=== PATIENT | male | born 1980 | race Hispanic/Latino ===

== ENCOUNTER 2017-02-02 01:59 | Inpatient (IN) | payer BC, OTHER ==
--- NOTE | 2017-02-02 02:49 | Emergency Department Report ---
ED Chest Pain HPI - General Chief Complaint: Chest Pain Stated Complaint: CHEST PAIN Time Seen by Provider: 02/02/17 02:42 Source: patient, EMS Mode of arrival: Stretcher Limitations: No Limitations - History of Present Illness Initial Comments: Patient is a 36-year-old male with past medical history of CAD/CVA and high blood pressure and hyperlipidemia presents to the ER via EMS for chest pain, diaphoresis, shortness of breath. EMS gave patient nitroglycerin and 325 aspirin. Patient describes chest pain as a pressure in the center of his chest. Pain does not radiate anywhere. -: Sudden, This morning Onset: during rest Pain Location: substernal, left chest Pain Radiation: none Severity: moderate Severity scale (0 -10): 3 Quality: tightness, heaviness, pressure Consistency: constant Improves With: nitroglycerin, rest Worsens With: exertion, inspiration re: nausea, diaphoresis, dyspnea Treatments Prior to Arrival: aspirin, nitroglycerin, oxygen Aspirin use within the Past 7 Days: (0) No - Related Data On Oral Contraceptives: No Allergies Allergy/AdvReac Type Severity Reaction Status Date / Time No Known Allergies Allergy Verified 10/12/15 08:15 Heart Score - HEART Score History: Slightly suspicious EKG: Normal Age: < 45 Risk factors: > 3 risk factors or hx of atherosclerotic disease Troponin: < normal limit HEART Score: 2 ED Review of Systems ROS: Stated complaint: CHEST PAIN Other details as noted in HPI Comment: All other systems reviewed and negative Constitutional: see HPI, diaphoresis Eyes: as per HPI ENT: as per HPI Respiratory: no symptoms reported Cardiovascular: as per HPI, chest pain Endocrine: no symptoms reported Gastrointestinal: as per HPI Genitourinary: as per HPI Musculoskeletal: as per HPI Skin: as per HPI Neurological: as per HPI Psychiatric: as per HPI Hematological/Lymphatic: as per HPI ED Past Medical Hx - Past Medical History Previous Medical History?: Yes Hx Hypertension: Yes Hx CVA: Yes Hx Heart Attack/AMI: Yes Hx Congestive Heart Failure: No Hx Diabetes: No Hx of Cancer: No Hx Asthma: No Hx COPD: No - Surgical History Past Surgical History?: No - Family History Family history: CAD/NV, hypertension - Social History Smoking Status: Current Every Day Smoker Substance Use Type: None ED Physical Exam - General Limitations: No Limitations General appearance: alert, in no apparent distress - Head Head exam: Present: atraumatic, normocephalic - Eye Eye exam: Present: normal appearance - ENT ENT exam: Present: mucous membranes moist - Neck Neck exam: Present: normal inspection - Respiratory Respiratory exam: Present: normal lung sounds bilaterally. Absent: respiratory distress - Cardiovascular Cardiovascular Exam: Present: regular rate, normal rhythm. Absent: systolic murmur, diastolic murmur, rubs, gallop - GI/Abdominal GI/Abdominal exam: Present: soft, normal bowel sounds - Rectal Rectal exam: Present: deferred - Extremities Exam Extremities exam: Present: normal inspection - Back Exam Back exam: Present: normal inspection - Neurological Exam Neurological exam: Present: alert, oriented X3 - Psychiatric Psychiatric exam: Present: normal affect, normal mood - Skin Skin exam: Present: warm, dry, intact, normal color. Absent: rash ED Course Vital Signs 02/02/17 02/02/17 02/02/17 02:16 02:30 03:00 Temperature 98.3 F Pulse Rate 91 H 89 77 Respiratory 21 11 L Rate Blood Pressure 125/93 111/85 122/87 O2 Sat by Pulse 97 96 98 Oximetry 02/02/17 03:16 Temperature Pulse Rate Respiratory 17 Rate Blood Pressure O2 Sat by Pulse 97 Oximetry ANDRE score - Andre Score Age > 65: (0) No Aspirin use within the Past 7 Days: (0) No 3 or more CAD Risk Factors: (1) Yes 2 or more Angina events in past 24 hrs: (0) No Known CAD with more than 50% Stenosis: (0) No Elevated Cardiac Markers: (0) No ST Deviation Greater than 0.5mm: (0) No ANDRE Score: 1 ED Medical Decision Making - Lab Data Result diagrams: 02/02/17 02:42 02/02/17 02:42 - EKG Data -: EKG Interpreted by Al EKG shows normal: sinus rhythm Rate: normal - EKG Data Interpretation: no acute changes, normal EKG - Radiology Data Radiology results: image reviewed No acute disease on chest x-ray. - Medical Decision Making Will consult hospitalist for admission. - Differential Diagnosis cp. acs. angina Critical care attestation.: If time is entered above; I have spent that time in minutes in the direct care of this critically ill patient, excluding procedure time. ED Disposition Clinical Impression: Chest pain, Diaphoresis, Hyperlipidemia, Hypertension Disposition: OP ADMIT IP TO THIS HOSP Is pt being admited?: Yes Does the pt Need Aspirin: No Condition: Serious Time of Disposition: 03:56
[2017-02-02 03:05] LABS: Basophils % (Auto) 0.9 % (0.0-1.8); Eosinophils % (Auto) 1.8 % (0.0-4.3); Hematocrit 45.3 % (35.5-45.6); Hemoglobin 15.8 gm/dl (11.8-15.2); Mean Corpuscular HGB Conc 35 % (32-34); Mean Corpuscular Hemoglobin 32 pg (28-32); Mean Corpuscular Volume 91 fl (84-94); Platelet Count 234 K/mm3 (140-440); Red Blood Count 4.97 M/mm3 (3.65-5.03); Red Cell Distribution Width 12.9 % (13.2-15.2); White Blood Count 14.3 K/mm3 (4.5-11.0)
--- NOTE | 2017-02-02 03:05 | XRay Report ---
FINAL REPORT EXAM: XR CHEST 1V AP HISTORY: cp TECHNIQUE: A portable upright view of the chest was submitted. FINDINGS: The heart size and mediastinum appear normal. The lungs are clear. Pleural fluid is not seen. The bones and soft tissues reveal arthritic changes in the AC joints bilaterally. IMPRESSION: No active chest disease.
[2017-02-02 03:15] LABS: Anion Gap 18 mmol/L; BUN/Creatinine Ratio 16; Blood Urea Nitrogen 11 mg/dL (9-20); Calcium 8.8 mg/dL (8.4-10.2); Carbon Dioxide 26 mmol/L (22-30); Chloride 103.8 mmol/L (98-107); Glucose 106 mg/dL (75-100); Potassium 3.9 mmol/L (3.6-5.0); Sodium 144 mmol/L (137-145)
[2017-02-02] MEDS ORDERED: MORPHINE IV ONE (03:15)
[2017-02-02] MEDS ORDERED: MORPHINE IV PRN ×3 (06:04→08:56)
--- NOTE | 2017-02-02 08:43 | History and Physical Report ---
<BAHMAN HAM - Last Filed: 02/02/17 13:44> History of Present Illness Date of examination: 02/02/17 Date of admission: 02/02/17 06:03 Chief complaint: chest pain History of present illness: Patient is a 64-year-old male with past medical history of hypertension and stroke with left side weakness, who presents to emergency department for complaining of left side chest pain. He states that the pain began this morning around 3:00 AM intermittent left side chest pain. The pain was located over his substernal somewhat in the left epigastric area. he describes the quality as a chest tightness/pressure with radiation to the left neck and back. The painful episodes did not increase in intensity or severity during this time. The patient denies chest pain at present time. Patient stated that he has been nauseated all morning. Patient reported begin lightheaded shortness of breath, dizziness and heart palpitations, diaphoresis including feeling clammy.At the ED the patient was given nitroglycerin and ASA which she claims helped alleviate the pain somewhat. No aggravating factors. Patient both parents from heart attack. Past History Past Medical History: hypertension, stroke Past Surgical History: No surgical history Social history: denies: smoking, alcohol abuse Family history: CAD, hypertension Medications and Allergies Allergies Allergy/AdvReac Type Severity Reaction Status Date / Time No Known Allergies Allergy Verified 10/12/15 08:15 Home Medications Medication Instructions Recorded Confirmed Last Taken Type Atorvastatin Calcium [Lipitor] 40 mg PO DAILY 02/02/17 02/02/17 Unknown History Hydrochlorothiazide [HCTZ] 25 mg PO QDAY 02/02/17 02/02/17 Unknown History Ibuprofen [Motrin] 200 mg PO Q6H PRN 02/02/17 02/02/17 Unknown History Metoprolol Succinate [Toprol Xl] 100 mg PO DAILY 02/02/17 02/02/17 Unknown History amLODIPine [Norvasc] 5 mg PO DAILY 02/02/17 02/02/17 Unknown History Active Meds: Active Medications Morphine Sulfate (Morphine) 2 mg IV Q4H PRN PRN Reason: Pain, Moderate (4-6) Review of Systems Constitutional: no weight loss, no weight gain, no fever, no chills Ears, nose, mouth and throat: no nose pain, no nasal congestion, no nasal discharge Cardiovascular: chest pain, lightheadedness, shortness of breath, no rapid/ irregular heart beat, no edema, no syncope Respiratory: shortness of breath, dyspnea on exertion Gastrointestinal: nausea Genitourinary Male: no discharge, no urinary frequency, no urinary hesitancy, no nocturia Musculoskeletal: no shooting arm pain, no arm numbness/tingling, no low back pain, no shooting leg pain Integumentary: no sores, no wounds, no jaundice Neurological: no numbness, no tingling, no seizures, no syncope Psychiatric: no hypersomnia, no change in appetite Endocrine: no cold intolerance, no polyphagia, no polydipsia, no polyuria Hematologic/Lymphatic: no easy bruising, no easy bleeding Allergic/Immunologic: no urticaria, no allergic rhinitis Exam - Constitutional Vitals: Temp Pulse Resp BP Pulse Ox 98.3 F 70 16 124/81 97 02/02/17 02:16 02/02/17 07:30 02/02/17 07:30 02/02/17 07:30 02/02/17 07:30 General appearance: Present: no acute distress - EENT Eyes: Present: PERRL ENT: hearing intact - Neck Neck: Present: supple - Respiratory Respiratory effort: normal Respiratory: bilateral: CTA - Cardiovascular Rhythm: regular Heart Sounds: Present: S1 & S2 - Abdominal General gastrointestinal: Present: soft, non-tender Male genitourinary: Present: deferred - Rectal Rectal Exam: deferred - Integumentary Integumentary: Present: clear, warm, dry - Musculoskeletal Musculoskeletal: strength equal bilaterally - Psychiatric Psychiatric: appropriate mood/affect - Neurologic Neurologic: CNII-XII intact - Allied Health Allied health notes reviewed: nursing Results - Labs CBC & Chem 7: 02/02/17 02:42 02/02/17 02:42 Labs: Laboratory Last Values WBC 14.3 K/mm3 (4.5-11.0) H 02/02/17 02:42 RBC 4.97 M/mm3 (3.65-5.03) 02/02/17 02:42 Hgb 15.8 gm/dl (11.8-15.2) H 02/02/17 02:42 Hct 45.3 % (35.5-45.6) 02/02/17 02:42 MCV 91 fl (84-94) 02/02/17 02:42 MCH 32 pg (28-32) 02/02/17 02:42 MCHC 35 % (32-34) H 02/02/17 02:42 RDW 12.9 % (13.2-15.2) L 02/02/17 02:42 Plt Count 234 K/mm3 (140-440) 02/02/17 02:42 Lymph % (Auto) 19.7 % (13.4-35.0) 02/02/17 02:42 Kerr % (Auto) 8.3 % (0.0-7.3) H 02/02/17 02:42 Eos % (Auto) 1.8 % (0.0-4.3) 02/02/17 02:42 Baso % (Auto) 0.9 % (0.0-1.8) 02/02/17 02:42 Lymph # 2.8 K/mm3 (1.2-5.4) 02/02/17 02:42 Kerr # 1.2 K/mm3 (0.0-0.8) H 02/02/17 02:42 Eos # 0.3 K/mm3 (0.0-0.4) 02/02/17 02:42 Baso # 0.1 K/mm3 (0.0-0.1) 02/02/17 02:42 Seg Neutrophils % 69.3 % (40.0-70.0) 02/02/17 02:42 Seg Neutrophils # 9.9 K/mm3 (1.8-7.7) H 02/02/17 02:42 Sodium 144 mmol/L (137-145) 02/02/17 02:42 Potassium 3.9 mmol/L (3.6-5.0) 02/02/17 02:42 Chloride 103.8 mmol/L (98-107) 02/02/17 02:42 Carbon Dioxide 26 mmol/L (22-30) 02/02/17 02:42 Anion Gap 18 mmol/L 02/02/17 02:42 BUN 11 mg/dL (9-20) 02/02/17 02:42 Creatinine 0.7 mg/dL (0.8-1.5) L 02/02/17 02:42 Estimated GFR > 60 ml/min 02/02/17 02:42 BUN/Creatinine Ratio 16 % 02/02/17 02:42 Glucose 106 mg/dL (75-100) H 02/02/17 02:42 Calcium 8.8 mg/dL (8.4-10.2) 02/02/17 02:42 Troponin T < 0.010 ng/mL (0.00-0.029) 02/02/17 05:10 - Imaging and Cardiology Chest x-ray: image reviewed (unremarkable) Assessment and Plan Assessment and plan: Patient is a 64-year-old male with past medical history of hypertension and stroke with left side weakness, who presents to emergency department for complaining of left side chest pain. He states that the pain began this morning around 3:00 AM worst intermittent midsternal chest pain. Chest Pain We will admit to telemetry floor. EKG normal sinus, no ST elevation or T-wave inversion. Negative cardiac enzyme troponin X1 and we will get serial troponin Start on aspirin Nitroglycerin when necessary Morphine ordered for pain Stress test ordered. Hypertension Review of antihypertensive medication IV hydralazine Closely monitor blood pressure History of stroke with left-sided weakness Physical therapy on board DVT prophylaxis Heparin Advance Directives: Yes VTE prophylaxis?: Chemical Contraindication Mechanical VTE Prophylaxis: Treatment Not Indicated Plan of care discussed with patient/family: Yes <CRESENCIO BARNES - Last Filed: 02/02/17 23:35> History of Present Illness Date of admission: 02/02/17 06:03 Medications and Allergies Active Meds: Active Medications Amlodipine Besylate (Norvasc) 5 mg PO DAILY [facility] Aspirin (Baby Aspirin) 81 mg PO QDAY [facility] Atorvastatin Calcium (Lipitor) 40 mg PO QHS [facility] Last Admin: 02/02/17 21:12 Dose: 40 mg Famotidine (Pepcid) 20 mg IV BID [facility] Last Admin: 02/02/17 21:12 Dose: 20 mg Hydrochlorothiazide (Hctz) 25 mg PO QDAY [facility] Metoprolol Succinate (Toprol Xl) 100 mg PO DAILY [facility] Morphine Sulfate (Morphine) 2 mg IV Q4H PRN PRN Reason: Pain, Moderate (4-6) Last Admin: 02/02/17 08:38 Dose: 2 mg Nitroglycerin (Nitrostat) 0.4 mg SL .Q5MIN PRN PRN Reason: Chest Pain Ondansetron HCl (Zofran) 4 mg IM Q4H PRN PRN Reason: Nausea And Vomiting Exam - Constitutional Vitals: Temp Pulse Resp BP Pulse Ox 97.8 F 52 L 18 134/87 96 02/02/17 19:17 02/02/17 22:00 02/02/17 22:00 02/02/17 19:17 02/02/17 19:17 Results - Labs CBC & Chem 7: 02/02/17 02:42 02/02/17 02:42 Labs: Laboratory Last Values WBC 14.3 K/mm3 (4.5-11.0) H 02/02/17 02:42 RBC 4.97 M/mm3 (3.65-5.03) 02/02/17 02:42 Hgb 15.8 gm/dl (11.8-15.2) H 02/02/17 02:42 Hct 45.3 % (35.5-45.6) 02/02/17 02:42 MCV 91 fl (84-94) 02/02/17 02:42 MCH 32 pg (28-32) 02/02/17 02:42 MCHC 35 % (32-34) H 02/02/17 02:42 RDW 12.9 % (13.2-15.2) L 02/02/17 02:42 Plt Count 234 K/mm3 (140-440) 02/02/17 02:42 Lymph % (Auto) 19.7 % (13.4-35.0) 02/02/17 02:42 Kerr % (Auto) 8.3 % (0.0-7.3) H 02/02/17 02:42 Eos % (Auto) 1.8 % (0.0-4.3) 02/02/17 02:42 Baso % (Auto) 0.9 % (0.0-1.8) 02/02/17 02:42 Lymph # 2.8 K/mm3 (1.2-5.4) 02/02/17 02:42 Kerr # 1.2 K/mm3 (0.0-0.8) H 02/02/17 02:42 Eos # 0.3 K/mm3 (0.0-0.4) 02/02/17 02:42 Baso # 0.1 K/mm3 (0.0-0.1) 02/02/17 02:42 Seg Neutrophils % 69.3 % (40.0-70.0) 02/02/17 02:42 Seg Neutrophils # 9.9 K/mm3 (1.8-7.7) H 02/02/17 02:42 Sodium 144 mmol/L (137-145) 02/02/17 02:42 Potassium 3.9 mmol/L (3.6-5.0) 02/02/17 02:42 Chloride 103.8 mmol/L (98-107) 02/02/17 02:42 Carbon Dioxide 26 mmol/L (22-30) 02/02/17 02:42 Anion Gap 18 mmol/L 02/02/17 02:42 BUN 11 mg/dL (9-20) 02/02/17 02:42 Creatinine 0.7 mg/dL (0.8-1.5) L 02/02/17 02:42 Estimated GFR > 60 ml/min 02/02/17 02:42 BUN/Creatinine Ratio 16 % 02/02/17 02:42 Glucose 106 mg/dL (75-100) H 02/02/17 02:42 Calcium 8.8 mg/dL (8.4-10.2) 02/02/17 02:42 Troponin T < 0.010 ng/mL (0.00-0.029) 02/02/17 09:09 Assessment and Plan Assessment and plan: I saw and evaluated the patient. I agree with the findings and the plan of care as documented in the Nurse Practitioner's~note, with the following corrections and additions. Discussed Tobacco cessation with pateint -He verbalized understanding PATIENT ALSO reports running out of Toprol and could not refill due to cost. will discuss with cardiology about changing to coreg He reports prior CVA but with no residual effect, unfortunately has not been taken ASA due to PUD but never tried PPI will add PPI and if negative stress will discontinue ASA and recommend follow up with GI prior to initiation of ASA.
[2017-02-02] MEDS ORDERED: ZOFRAN IM PRN (08:49)
[2017-02-02] MEDS ORDERED: NITROSTAT SL PRN (08:50)
[2017-02-02] MEDS ORDERED: PROTONIX IV SCH (10:00)
[2017-02-02] MEDS: PEPCID IV SCH ×2 (13:38→21:12)
--- NOTE | 2017-02-03 00:07 | Treadmill Report ---
THALLIUM STRESS TEST LEFT VENTRICLE: Left ventricular chamber size is within normal spread. Perfusion study demonstrates fairly homogeneous uptake of tracer in all segments, no significant perfusion defect identified. Gated analysis demonstrates normal left ventricular systolic function, ejection fraction 68%. CONCLUSION: Normal myocardial perfusion study. JOB# [id number] CA/NTS
[2017-02-03 07:04] LABS: Eosinophils % (Auto) 6.8 % (0.0-4.3); Hematocrit 45.4 % (35.5-45.6); Hemoglobin 15.7 gm/dl (11.8-15.2); Mean Corpuscular HGB Conc 35 % (32-34); Mean Corpuscular Hemoglobin 32 pg (28-32); Mean Corpuscular Volume 93 fl (84-94); Platelet Count 209 K/mm3 (140-440); Red Blood Count 4.89 M/mm3 (3.65-5.03); Red Cell Distribution Width 12.9 % (13.2-15.2); White Blood Count 7.1 K/mm3 (4.5-11.0)
[2017-02-03 07:27] LABS: Anion Gap 18 mmol/L; BUN/Creatinine Ratio 11; Blood Urea Nitrogen 9 mg/dL (9-20); Calcium 8.3 mg/dL (8.4-10.2); Carbon Dioxide 27 mmol/L (22-30); Chloride 102.6 mmol/L (98-107); Glucose 111 mg/dL (75-100); Potassium 4.5 mmol/L (3.6-5.0); Sodium 143 mmol/L (137-145)
[2017-02-03 07:54] LABS: Cholesterol 140 mg/dL (50-199); HDL Cholesterol 40 mg/dL (40-59); LDL Cholesterol,Direct 70 mg/dL (50-130); Triglycerides 151 mg/dL (2-149)
[2017-02-03] MEDS ORDERED: HCTZ PO SCH (10:00)
[2017-02-03] MEDS ORDERED: NORVASC PO SCH (10:00)
[2017-02-03] MEDS ORDERED: TOPROL XL PO SCH (10:00)
[2017-02-03] MEDS: PEPCID IV SCH (11:00)
[2017-02-03] MEDS: BABY ASPIRIN PO SCH ×2 (11:00→11:06)
--- NOTE | 2017-02-03 11:36 | Discharge Summary ---
Providers - Providers Date of Admission: 02/02/17 06:03 Attending physician: CARLOS EDUARDO VILLALOBOS MD 02/02/17 Consult to Cardiac Rehabilitation [CONS] Routine Reason For Exam: Phase 1 02/02/17 13:45 Physical Therapy Evaluation and Treat [CONS] Routine Comment: Reason For Exam: TIA Primary care physician: [employer] Hospitalization Reason for admission: chest pain and left sided weakness Condition: Stable Hospital course: Patient is a 64-year-old male with past medical history of hypertension and stroke with left side weakness, who presents to emergency department for complaining of left side chest pain. He states that the pain began this morning around 3:00 AM intermittent left side chest pain. The pain was located over his substernal somewhat in the left epigastric area. he describes the quality as a chest tightness/pressure with radiation to the left neck and back. The painful episodes did not increase in intensity or severity during this time. The patient denies chest pain at present time. Patient stated that he has been nauseated all morning. Patient reported begin lightheaded shortness of breath, dizziness and heart palpitations, diaphoresis including feeling clammy.At the ED the patient was given nitroglycerin and ASA which she claims helped alleviate the pain somewhat. No aggravating factors. Patient both parents from heart attack. The patient WAS admitted and recertified distress was done which was unremarkable. Imaging studies for TIA was unremarkable also. Patient 's left-sided paresthesia improved and he is back to his baseline. Patient has been noncompliant to Toprol due to cost we had extensive discussion and this was changed to metoprolol which is in the fall below list. I did also discuss with the patient about smoking cessation 15 minutes was spent patient verbalized understanding and is clinically stable of the spine for discharge. He will keep diary for blood pressure follow-up with his primary care doctor. Atypical Chest Pain secondary to Hypertensive urgency Hypertensive urgency Left sided parasthesia CVA with residual right sided parsthesia Tobacco cessation Disposition: DC-01 TO HOME OR SELFCARE Time spent for discharge: 35 mins Core Measure Documentation - Palliative Care Palliative Care/ Comfort Measures: Not Applicable - Core Measures Any of the following diagnoses?: none - VTE Discharge Requirements Deep Vein Thrombosis/Pulmonary Embolism Present on Admission: No Exam - Physical Exam Narrative exam: VITAL SIGNS: Reviewed. GENERAL: The patient appeared well nourished and normally developed. Vital signs as documented. HEAD: No signs of head trauma. EYES: Pupils are equal. Extraocular motions intact. EARS: Hearing grossly intact. MOUTH: Oropharynx is normal. NECK: No adenopathy, no JVD. CHEST: Chest with clear breath sounds bilaterally. No wheezes, rales, or rhonchi. CARDIAC: Regular rate and rhythm. S1 and S2, without murmurs, gallops, or rubs. VASCULAR: No Edema. Peripheral pulses normal and equal in all extremities. ABDOMEN: Soft, without detectable tenderness. No sign of distention. No rebound or guarding, and no masses palpated. Bowel Sounds normal. MUSCULOSKELETAL: Good range of motion of all major joints. Extremities without clubbing, cyanosis or edema. NEUROLOGIC EXAM: Alert and oriented x 3. No focal sensory or strength deficits. Speech normal. Follows commands. PSYCHIATRIC: Mood normal. SKIN: No rash or lesions. - Constitutional Vitals: Temp Pulse Resp BP Pulse Ox 98.3 F 54 L 18 119/78 97 02/03/17 07:38 02/03/17 11:04 02/03/17 07:38 02/03/17 11:02 02/03/17 07:38 Plan Activity: advance as tolerated, fall precautions Diet: low fat Special Instructions: smoking cessation Additional Instructions: Must follow with PCP to evaluate if METOPROLOL is adequate, patient unable to afford Toprol and has been off the medication. ALSO PCP TO START ON ASA WITH PPI. PATIENT TO AVOID Follow up with: PRIMARY CARE, [Primary Care Provider] - 7 Days Prescriptions: Metoprolol [Lopressor TAB] 50 mg PO BID #60 tablet
[2017-02-03 15:33] VITALS: BP 134/94
== END 2017-02-03 15:52 | disposition home or self-care (01) | DRG 305 ==
LOC: ED 01:59 → 4A 06:03
PROVIDERS: ADMIT Internal Medicine; ATTEND Internal Medicine
DX: I16.0 Hypertensive urgency (principal); I25.10 Atherosclerotic heart disease of native coronary artery without angina pectoris; E78.5 Hyperlipidemia, unspecified; F17.200 Nicotine dependence, unspecified, uncomplicated; I10 Essential (primary) hypertension; Z86.73 Personal history of transient ischemic attack (TIA), and cerebral infarction without residual deficits; I25.2 Old myocardial infarction; Z82.49 Family history of ischemic heart disease and other diseases of the circulatory system; Z71.6 Tobacco abuse counseling
CPT/HCPCS: 36415; 71010; 78452; 80048; 80061; 83036; 84484; 85025; 93005; 93010; 93017; 96374; 96376; 99406; A9270-GY; A9502; J2270